=== PATIENT | male | born 1960 | race Caucasian/White ===

== ENCOUNTER 2021-10-25 19:04 | Emergency (ER) | payer MEDICARE ==
[~2021-10-25] VITALS: Ht 177.8 cm; Wt 77.3 kg
[~2021-10-25 19:04] MED LIST: CALC300T4 PO; DEXL60CA3 PO
--- NOTE | 2021-10-25 19:52 | NUR ---
PATIENT BIB WITH COMPLAINTS OF HOLDING A BEER BOTTLE AND IT BUST DENIES BEING ON BLOOD THINNERS THIS TOOK PLACE ABOUT 1800. DENIES NUMBNESS AND TINGLIMNG, STATES IT HURTS TO OPEN HIS HAND . PULSE RADIAL PULSE IS PRESENT .
[2021-10-25] MEDS ORDERED: LIDOcaine 1.5% w/epinephrine 1:200,000 5ml ampul IJ ONE (21:05)
[2021-10-25] MEDS ORDERED: TETanus/Pertussis (Acell)/Diphther VAC/PF (Tdap-Adult) 0.5ml syringe IMVAC ONE (21:05)
[2021-10-25] MEDS ORDERED: LIDOCAINE 2% w/EPI 1:100:000 30mL injection MDV**cath lab 1 only INJ ONE (21:10)
[2021-10-25] MEDS ORDERED: CEPH250T PO (22:09)
[2021-10-25] MEDS ORDERED: cephalexin 250 MG/5 ML oral suspension PO SCH (22:10)
[2021-10-25] MEDS ORDERED: cephalexin 250 MG/5 ML oral suspension PO ONE (22:10)
[2021-10-25 22:51] VITALS: BP 135/74
== END 2021-10-25 22:55 | disposition home or self-care (01) ==
LOC: ER 19:05
DX: S51.812A Laceration without foreign body of left forearm, initial encounter (principal); Z95.1 Presence of aortocoronary bypass graft; Z72.89 Other problems related to lifestyle; Z88.5 Allergy status to narcotic agent; Z79.2 Long term (current) use of antibiotics; Z20.3 Contact with and (suspected) exposure to rabies; Z79.899 Other long term (current) drug therapy; X58.XXXA Exposure to other specified factors, initial encounter; Y93.89 Activity, other specified; Y92.89 Other specified places as the place of occurrence of the external cause; Y99.8 Other external cause status
CPT/HCPCS: 12001; 73090; 90471; 90715; 99284; J3490

== ENCOUNTER 2025-08-05 13:55 | Emergency (ER) | payer MEDICARE ==
[~2025-08-05] VITALS: Ht 180.3 cm; Wt 79.9 kg
[2025-08-05 13:55] VITALS: BP 133/98; PULSE 91; RESP 16; O2SAT 96
--- NOTE | 2025-08-05 14:50 | RADIOLOGY REPORT ---
X-ray left shoulder Technique AP internal external rotation views REASON FOR EXAM: trauma INDICATION: trauma FINDINGS: No fractures or dislocations. No erosions or periosteal reaction. Articular surfaces are smooth. IMPRESSION: 1. No acute bony pathology
--- NOTE | 2025-08-05 14:51 | RADIOLOGY REPORT ---
X-ray left wrist Technique: AP lateral and oblique views REASON FOR EXAM: trauma INDICATION: trauma FINDINGS: No fractures or dislocations. No erosions or periosteal reaction. Articular surfaces are smooth. IMPRESSION: 1. No acute bony pathology
--- NOTE | 2025-08-05 14:51 | RADIOLOGY REPORT ---
X-ray left elbow Technique: AP lateral and oblique views REASON FOR EXAM: trauma FINDINGS: No fractures or dislocations. No erosions or periosteal reaction. Articular surfaces are smooth. IMPRESSION: 1. No acute bony pathology
--- NOTE | 2025-08-05 14:53 | RADIOLOGY REPORT ---
CHEST RADIOGRAPH INDICATION: trauma TECHNIQUE: Single frontal view of the chest was obtained. COMPARISON: None FINDINGS: No focal consolidation. No significant pleural effusion. No pneumothorax. Mildly enlarged cardiomediastinal silhouette. IMPRESSION: No acute pulmonary process.
--- NOTE | 2025-08-05 14:54 | RADIOLOGY REPORT ---
DI HAND, COMPLETE (3VW MIN) COMPARISON: DI WRIST, COMPLETE (3VW MIN) on DOS: 08/05/25 INDICATION: trauma FINDINGS/IMPRESSION: No acute fracture or dislocation. Mild degenerate changes of the interphalangeal joints.
--- NOTE | 2025-08-05 15:05 | RADIOLOGY REPORT ---
CT brain without contrast CLINICAL INDICATION: Trauma, pain FINDINGS: The study was performed in a multidetector scanner. This study performed taking axial images from the skull base up to the vertex. Both brain and bone windows are photographed. Dose lowering techniques have been used including automated exposure control and adjustment of mA and/or KV according to patient size. Normal and symmetrical shape and density of brain parenchyma above and below the tentorium is seen. There is no mass, midline shift or hydrocephalus. No intra/extra-axial collections demonstrated. There is no intracranial hemorrhage. The calvarium is intact. IMPRESSION: 1. Normal brain and skull. Computed Tomographic Radiation Dosimetry Report: Total CTDI vol = 56 mGy Total DLP = 1082 mGy-cm All CT scans at this medical facility are performed using dose modulation techniques as appropriate to a performed exam including the following: Automated exposure control was utilized; adjustment of the MA and/or KvP according to patient size; and use of iterative reconstruction technique.
--- NOTE | 2025-08-05 15:14 | RADIOLOGY REPORT ---
PROCEDURE: CT CT CHEST Reason for study/Clinical History: LT RIB PAIN Comparison Study: None Exam Date: 08/05/2025 02:38 PM TECHNIQUE: Multidetector CT of the chest was performed from the lung apices to the upper abdomen without the use of intravenous contract. Axial, coronal and sagittal multiplanar reformats were performed. Radiation Dose Information: CT Dose: CTDI volume is 18.6 mGy. Dose-length product is 728 mGy*cm The dose indicators for CT are the volume Computed Tomography (CT) Dose Index (CTDIvol) and the Dose Length Product (DLP), and are measured in units of mGy and mGy-cm, respectively. These indicators are not patient dose, but values generated from the CT scanner acquisition factors. The report includes radiation exposure data for exposures received during this examination. FINDINGS: Lower neck: Normal thyroid. Lungs: No focal consolidation, pleural effusion or pneumothorax. Heart/Vascular Structures: Normal heart size. No pericardial effusion. Lymph Nodes: No adenopathy Pleura: No pleural effusion or significant pneumothorax. Musculoskeletal: No acute osseous abnormality. Soft tissues: Normal. Upper abdomen: Limited portions of the upper abdomen are unremarkable. IMPRESSION: 1. No acute cardiopulmonary pathology. No fracture or destructive lesion of the ribs Radiation optimization: All CT scans at this facility use at least one of these dose optimization techniques: automated exposure control mA and/or kV adjustment per patient size (includes targeted exams where dose is matched to clinical indication) or iterative reconstruction.
--- NOTE | 2025-08-05 15:16 | RADIOLOGY REPORT ---
CT cervical spine INDICATION: Trauma, pain TECHNIQUE: Serial axial images were performed through spine and then reformatted in sagital and coronal planes. FINDINGS: No fracture or dislocation. There is disk space narrowing at C6-7 . On transaxial images no significant narrowing of the central canal or neural foramina 9 no para vertebral soft tissue masses. Lung apices clear. IMPRESSION: 1. No acute bony trauma. Degenerative changes at C6-C7 Computed Tomographic Radiation Dosimetry Report: Total CTDI vol = 22 mGy Total DLP = 562 mGy-cm All CT scans at this medical facility are performed using dose modulation techniques as appropriate to a performed exam including the following: Automated exposure control was utilized; adjustment of the MA and/or KvP according to patient size; and use of iterative reconstruction technique.
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
[2025-08-05] MEDS ORDERED: CYCL-1 PO (16:12)
[2025-08-05 16:41] VITALS: TEMP 98
== END 2025-08-05 19:07 | disposition home or self-care (01) ==
LOC: ER 13:55
DX: S39.92XA Unspecified injury of lower back, initial encounter (principal); E11.9 Type 2 diabetes mellitus without complications; Z95.1 Presence of aortocoronary bypass graft; Z88.5 Allergy status to narcotic agent; Z79.899 Other long term (current) drug therapy; Z72.89 Other problems related to lifestyle; W18.39XA Other fall on same level, initial encounter; Y93.23 Activity, snow (alpine) (downhill) skiing, snowboarding, sledding, tobogganing and snow tubing; Y92.89 Other specified places as the place of occurrence of the external cause; Y99.8 Other external cause status
CPT/HCPCS: 70450; 71045; 71250; 72125; 73030; 73080; 73110; 73130; 99284